=== PATIENT | male | born 1950 | race Caucasian/White ===

== ENCOUNTER 2017-12-08 10:07 | Inpatient (IN) | payer BC, OTHER ==
[2017-12-08 10:52] LABS: ADD MAN DIFF? NO
[2017-12-08 10:57] LABS: ABNORMAL IP MESSAGE 1; BASOPHIL # 0.2 10^3/ul (0.0-0.1); BASOPHILS % 1.1 % (0.0-2.0); EOSINOPHILS # 1.1 10^3/ul (0.0-0.5); EOSINOPHILS % 7.7 % (0.0-7.0); HEMATOCRIT 39.9 % (42.0-52.0); HEMOGLOBIN 13.7 g/dl (14.0-18.0); LYMPHOCYTES # 1.5 10^3/ul (0.8-2.9); LYMPHOCYTES % 11.2 % (15.0-51.0); MEAN CORPUSCULAR HEMOGLOBIN 30.4 pg (29.0-33.0); MEAN CORPUSCULAR HGB CONC 34.3 g/dl (32.0-37.0); MEAN CORPUSCULAR VOLUME 88.7 fl (82.0-101.0); MEAN PLATELET VOLUME 9.7 fl (7.4-10.4); MONOCYTE # 1.7 10^3/ul (0.3-0.9); MONOCYTES % 12.5 % (0.0-11.0); NEUTROPHIL # 9.1 10^3/ul (1.6-7.5); NEUTROPHILS % 66.3 % (39.0-77.0); PLATELET COUNT 377 10^3/UL (140-415); POSITIVE DIFF @See below; RED CELL DISTRIBUTION WIDTH 11.7 % (11.5-14.5)
[2017-12-08 10:57] LABS: WHITE BLOOD COUNT 13.7 10^3/ul (4.8-10.8)
[2017-12-08 11:00] LABS: ADD UMIC YES; UR ASCORBIC ACID NEGATIVE (NEGATIVE); UR BACTERIA FEW /HPF (NONE SEEN); UR BILIRUBIN (Dip) NEGATIVE (NEGATIVE); UR BLOOD (Dip) 1+ mg/dL (NEGATIVE); UR CLARITY SLIGHTLY CLOUDY (CLEAR); UR COLOR YELLOW (YELLOW); UR GLUCOSE (Dip) NEGATIVE (NEGATIVE); UR KETONES (Dip) NEGATIVE (NEGATIVE); UR LEUKOCYTE ESTERASE (Dip) NEGATIVE Leu/ul (NEGATIVE); UR MUCUS FEW /HPF (NONE SEEN); UR NITRITE (Dip) NEGATIVE (NEGATIVE); UR RBC 3 /HPF (0-5); UR SPECIFIC GRAVITY (Dip) 1.017 (1.003-1.030); UR TOTAL PROTEIN (Dip) 1+ mg/dl (NEGATIVE); UR UROBILINOGEN (Dip) 1+ mg/dL (NEGATIVE); UR WBC 5 /HPF (0-5)
[2017-12-08 11:34] LABS: ANION GAP 18 (8-16); BLOOD UREA NITROGEN 23 mg/dl (7-20); CALCIUM 9.3 mg/dl (8.4-10.2); CARBON DIOXIDE 31 mmol/L (21-31); CHLORIDE 98 mmol/L (97-110); CREATININE 1.28 mg/dl (0.61-1.24); GLUCOSE 122 mg/dl (70-220); POTASSIUM 3.6 mmol/L (3.5-5.1); SODIUM 143 mmol/L (135-144)
[2017-12-08 11:55] LABS: INR 1.04; PROTIME 13.7 Sec (11.9-14.9); PT RATIO 1.1
[2017-12-08 11:56] LABS: PARTIAL THROMBOPLASTIN TIME 32.3 Sec (25.0-35.0)
[2017-12-08 12:06] LABS: LIPASE 135 U/L (23-300)
[2017-12-08] MEDS: SOD CHLORIDE 0.9% 1,000 ML IV (12:06)
[2017-12-08] MEDS: SOD CHLORIDE 0.9% 100 ML (12:11)
[2017-12-08] MEDS: IOHEXOL 300MG/ML 150 ML BTL (12:11)
[2017-12-08 13:59] LABS: LACTIC ACID 1.6 mmol/L (0.5-2.0)
[2017-12-08] MEDS ORDERED: ACETAMINOPHEN 325 MG TAB PO (14:30)
[2017-12-08] MEDS ORDERED: ONDANSETRON 4 MG INJ IV (14:30)
[2017-12-08] MEDS ORDERED: HYDROCODONE/APAP (5/325) TAB PO (15:30)
[2017-12-08] MEDS ORDERED: NACL 0.9% 3 ML SYG IV (15:30)
[2017-12-08] MEDS ORDERED: ONDANSETRON 4 MG TAB PO (15:30)
[2017-12-08] MEDS: ACETAMINOPHEN 325 MG TAB PO (16:40)
[2017-12-09 05:05] LABS: ADD MAN DIFF? NO
[2017-12-09 05:06] LABS: WHITE BLOOD COUNT 12.1 10^3/ul (4.8-10.8)
[2017-12-09 05:06] LABS: ABNORMAL IP MESSAGE 1; BASOPHIL # 0.2 10^3/ul (0.0-0.1); BASOPHILS % 1.3 % (0.0-2.0); EOSINOPHILS # 1.2 10^3/ul (0.0-0.5); EOSINOPHILS % 10.1 % (0.0-7.0); HEMATOCRIT 34.6 % (42.0-52.0); HEMOGLOBIN 12.1 g/dl (14.0-18.0); LYMPHOCYTES # 1.6 10^3/ul (0.8-2.9); LYMPHOCYTES % 12.9 % (15.0-51.0); MEAN CORPUSCULAR HEMOGLOBIN 30.7 pg (29.0-33.0); MEAN CORPUSCULAR VOLUME 87.8 fl (82.0-101.0); MEAN PLATELET VOLUME 10.2 fl (7.4-10.4); MONOCYTE # 1.7 10^3/ul (0.3-0.9); MONOCYTES % 13.9 % (0.0-11.0); NEUTROPHIL # 7.3 10^3/ul (1.6-7.5); NEUTROPHILS % 60.5 % (39.0-77.0); PLATELET COUNT 350 10^3/UL (140-415); POSITIVE DIFF @See below; RED BLOOD COUNT 3.94 10^6/ul (4.70-6.10); RED CELL DISTRIBUTION WIDTH 12.1 % (11.5-14.5)
[2017-12-09 05:48] LABS: ANION GAP 18 (8-16); BLOOD UREA NITROGEN 23 mg/dl (7-20); CALCIUM 8.9 mg/dl (8.4-10.2); CARBON DIOXIDE 27 mmol/L (21-31); CHLORIDE 101 mmol/L (97-110); CREATININE 1.07 mg/dl (0.61-1.24); GLUCOSE 109 mg/dl (70-220); POTASSIUM 3.6 mmol/L (3.5-5.1); SODIUM 142 mmol/L (135-144)
[2017-12-09] MEDS: PANTOPRAZOLE (EC) 40 MG TAB PO (06:15)
[2017-12-09] MEDS: LEVOFLOXACIN 750 MG TABLET PO (09:20)
[2017-12-09] MEDS: ENOXAPARIN 40 MG/0.4 ML SYG SC (09:23)
[2017-12-09] MEDS: ACETAMINOPHEN 325 MG TAB PO (20:16)
[2017-12-10] MEDS: PANTOPRAZOLE (EC) 40 MG TAB PO (05:49)
[2017-12-10 06:08] LABS: ADD MAN DIFF? NO
[2017-12-10 06:12] LABS: ABNORMAL IP MESSAGE 1; BASOPHIL # 0.2 10^3/ul (0.0-0.1); BASOPHILS % 1.3 % (0.0-2.0); EOSINOPHILS # 1.3 10^3/ul (0.0-0.5); EOSINOPHILS % 9.4 % (0.0-7.0); HEMATOCRIT 34.7 % (42.0-52.0); HEMOGLOBIN 12.1 g/dl (14.0-18.0); LYMPHOCYTES # 1.5 10^3/ul (0.8-2.9); LYMPHOCYTES % 10.7 % (15.0-51.0); MEAN CORPUSCULAR HEMOGLOBIN 31.1 pg (29.0-33.0); MEAN CORPUSCULAR HGB CONC 34.9 g/dl (32.0-37.0); MEAN CORPUSCULAR VOLUME 89.2 fl (82.0-101.0); MEAN PLATELET VOLUME 10.3 fl (7.4-10.4); MONOCYTE # 1.5 10^3/ul (0.3-0.9); MONOCYTES % 10.8 % (0.0-11.0); NEUTROPHIL # 9.4 10^3/ul (1.6-7.5); PLATELET COUNT 384 10^3/UL (140-415); POSITIVE DIFF @See below; RED BLOOD COUNT 3.89 10^6/ul (4.70-6.10); RED CELL DISTRIBUTION WIDTH 11.9 % (11.5-14.5)
[2017-12-10 06:12] LABS: WHITE BLOOD COUNT 14.2 10^3/ul (4.8-10.8)
[2017-12-10 07:23] LABS: ANION GAP 16 (8-16); BLOOD UREA NITROGEN 22 mg/dl (7-20); CALCIUM 8.9 mg/dl (8.4-10.2); CARBON DIOXIDE 28 mmol/L (21-31); CHLORIDE 102 mmol/L (97-110); CREATININE 1.02 mg/dl (0.61-1.24); GLUCOSE 120 mg/dl (70-220); PHOSPHORUS 3.4 mg/dl (2.5-4.9); POTASSIUM 3.5 mmol/L (3.5-5.1); SODIUM 142 mmol/L (135-144)
[2017-12-10] MEDS: HYDROCHLOROTHIAZIDE 25 MG TAB PO ×2 (08:27→12:20)
[2017-12-10] MEDS: LEVOFLOXACIN 750 MG TABLET PO ×2 (08:27→12:20)
[2017-12-10] MEDS: LOSARTAN 50 MG TAB PO ×2 (08:27→12:20)
[2017-12-10] MEDS: ENOXAPARIN 40 MG/0.4 ML SYG SC (08:27)
[2017-12-10] MEDS: ACETAMINOPHEN 325 MG TAB PO ×2 (12:21→23:52)
[2017-12-10] MEDS: GUAIFENESIN/CODEINE 5ML CUP PO ×3 (15:50→23:51)
[2017-12-11] MEDS: PANTOPRAZOLE (EC) 40 MG TAB PO (05:14)
[2017-12-11 06:02] LABS: ADD MAN DIFF? NO
[2017-12-11 06:20] LABS: BASOPHIL # 0.2 10^3/ul (0.0-0.1); BASOPHILS % 1.6 % (0.0-2.0); EOSINOPHILS # 1.4 10^3/ul (0.0-0.5); HEMATOCRIT 35.7 % (42.0-52.0); HEMOGLOBIN 11.9 g/dl (14.0-18.0); LYMPHOCYTES # 1.6 10^3/ul (0.8-2.9); LYMPHOCYTES % 12.5 % (15.0-51.0); MEAN CORPUSCULAR HEMOGLOBIN 30.2 pg (29.0-33.0); MEAN CORPUSCULAR HGB CONC 33.3 g/dl (32.0-37.0); MEAN CORPUSCULAR VOLUME 90.6 fl (82.0-101.0); MEAN PLATELET VOLUME 10.3 fl (7.4-10.4); MONOCYTE # 1.4 10^3/ul (0.3-0.9); MONOCYTES % 10.7 % (0.0-11.0); NEUTROPHIL # 8.1 10^3/ul (1.6-7.5); NEUTROPHILS % 61.8 % (39.0-77.0); PLATELET COUNT 393 10^3/UL (140-415); RED BLOOD COUNT 3.94 10^6/ul (4.70-6.10); RED CELL DISTRIBUTION WIDTH 11.9 % (11.5-14.5)
[2017-12-11] MEDS: ENOXAPARIN 40 MG/0.4 ML SYG SC (09:00)
[2017-12-11] MEDS: SOD CHLORIDE 0.9% 250 ML (10:45)
[2017-12-11] MEDS: FENTAnyl 50 MCG/ML VIAL (10:55)
[2017-12-11] MEDS: MIDAZOLAM 1 MG/ML 2 ML INJ (11:00)
[2017-12-11] MEDS: LIDOCAINE 1% (MDV) 20 ML INJ (11:01)
[2017-12-11] MEDS: ACETAMINOPHEN 325 MG TAB PO ×2 (14:08→20:39)
[2017-12-11] MEDS: LEVOFLOXACIN 750 MG TABLET PO (14:08)
[2017-12-11] MEDS: HYDROCHLOROTHIAZIDE 25 MG TAB PO (14:09)
[2017-12-11] MEDS: LOSARTAN 50 MG TAB PO (14:10)
[2017-12-11] MEDS: GUAIFENESIN/CODEINE 5ML CUP PO ×2 (16:41→23:28)
[2017-12-12] MEDS: ACETAMINOPHEN 325 MG TAB PO ×2 (03:10→18:42)
[2017-12-12] MEDS: GUAIFENESIN/CODEINE 5ML CUP PO ×2 (04:32→18:42)
[2017-12-12] MEDS: PANTOPRAZOLE (EC) 40 MG TAB PO (06:06)
[2017-12-12] MEDS: LEVOFLOXACIN 750 MG TABLET PO (08:26)
[2017-12-12] MEDS: HYDROCHLOROTHIAZIDE 25 MG TAB PO (08:27)
[2017-12-12] MEDS: LOSARTAN 50 MG TAB PO (08:27)
[2017-12-12] MEDS: MAGNESIUM SULFATE 2 GM/50 ML 50 ML IVPB (14:36)
[2017-12-12] MEDS: METHYLPREDNISOLONE 40 MG INJ IV ×2 (17:40→23:33)
[2017-12-12] MEDS ORDERED: MAGNESIUM HYDROXIDE 30ML CUP PO (21:00)
[2017-12-12] MEDS: SENNA TAB PO (21:16)
[2017-12-13] MEDS: METHYLPREDNISOLONE 40 MG INJ IV ×2 (05:25→14:22)
[2017-12-13] MEDS: PANTOPRAZOLE (EC) 40 MG TAB PO (05:25)
[2017-12-13] MEDS: HYDROCHLOROTHIAZIDE 25 MG TAB PO (08:30)
[2017-12-13] MEDS: LOSARTAN 50 MG TAB PO (08:30)
[2017-12-13] MEDS: LEVOFLOXACIN 750 MG TABLET PO (08:30)
[2017-12-13] MEDS: SENNA TAB PO (08:30)
[2017-12-13] MEDS: ACETAMINOPHEN 325 MG TAB PO ×2 (08:30→18:03)
[2017-12-13] MEDS: ENOXAPARIN 40 MG/0.4 ML SYG SC (09:00)
[2017-12-13] MEDS: GUAIFENESIN/CODEINE 5ML CUP PO (18:03)
== END 2017-12-13 18:13 | disposition home or self-care (01) | DRG 197 ==
LOC: FTE 10:07 → PP2 14:15
PROC: 0BBJ3ZX Excision of Left Lower Lung Lobe, Percutaneous Approach, Diagnostic (ICD-10-PCS; principal; 2017-12-11)
DX: J84.89 Other specified interstitial pulmonary diseases (principal); N17.9 Acute kidney failure, unspecified; I12.9 Hypertensive chronic kidney disease with stage 1 through stage 4 chronic kidney disease, or unspecified chronic kidney disease; R51 Headache; D14.32 Benign neoplasm of left bronchus and lung
CPT/HCPCS: 36415; 70450; 71045; 71260; 77012; 80048; 81001; 83605; 83690; 83735; 84100; 85025; 85610; 85730; 87040; 88307; 88313; 96360; 96361; 99285-25

== ENCOUNTER 2018-05-09 09:37 | Day surgery (SDC) | payer BC ==
[2018-05-09] MEDS ORDERED: PROPOFOL 20 ML ×2 (11:39→12:08)
[2018-05-09] MEDS ORDERED: FENTAnyl 50 MCG/ML VIAL (11:40)
== END 2018-05-09 14:31 | disposition home or self-care (01) ==
LOC: GIL 09:37
DX: Z12.11 Encounter for screening for malignant neoplasm of colon (principal); K29.50 Unspecified chronic gastritis without bleeding; K57.90 Diverticulosis of intestine, part unspecified, without perforation or abscess without bleeding; K64.8 Other hemorrhoids; K21.9 Gastro-esophageal reflux disease without esophagitis; I10 Essential (primary) hypertension
CPT/HCPCS: 43239; 88305; 88312

== ENCOUNTER 2018-10-28 02:39 | Inpatient (IN) | payer BC ==
[2018-10-28 03:15] LABS: ADD MAN DIFF? NO
[2018-10-28 03:16] LABS: BASOPHIL # 0.1 10^3/ul (0.0-0.1); BASOPHILS % 0.4 % (0.0-2.0); EOSINOPHILS % 0.1 % (0.0-7.0); HEMATOCRIT 41.7 % (42.0-52.0); HEMOGLOBIN 14.6 g/dl (14.0-18.0); LYMPHOCYTES # 1.9 10^3/ul (0.8-2.9); LYMPHOCYTES % 11.7 % (15.0-51.0); MEAN CORPUSCULAR HEMOGLOBIN 30.6 pg (29.0-33.0); MEAN CORPUSCULAR VOLUME 87.4 fl (82.0-101.0); MEAN PLATELET VOLUME 10.6 fl (7.4-10.4); MONOCYTE # 0.8 10^3/ul (0.3-0.9); MONOCYTES % 4.7 % (0.0-11.0); NEUTROPHIL # 13.2 10^3/ul (1.6-7.5); NEUTROPHILS % 82.1 % (39.0-77.0); PLATELET COUNT 198 10^3/UL (140-415); RED BLOOD COUNT 4.77 10^6/ul (4.70-6.10); RED CELL DISTRIBUTION WIDTH 11.4 % (11.5-14.5)
[2018-10-28] MEDS: ACETAMINOPHEN 325 MG TAB PO ×3 (03:20→20:25)
[2018-10-28] MEDS: SODIUM CHLORIDE 0.9% 1L BAG IV* (03:20)
[2018-10-28 03:34] LABS: ALANINE AMINOTRANSFERASE 13 IU/L (13-69); ALBUMIN 4.5 g/dl (3.3-4.9); ALBUMIN/GLOBULIN RATIO 1.09; ALKALINE PHOSPHATASE 124 IU/L (42-121); ANION GAP 14 (5-13); ASPARTATE AMINO TRANSFERASE 30 IU/L (15-46); BLOOD UREA NITROGEN 15 mg/dl (7-20); CALCIUM 9.3 mg/dl (8.4-10.2); CARBON DIOXIDE 24 mmol/L (21-31); CHLORIDE 98 mmol/L (97-110); CREATININE 1.35 mg/dl (0.61-1.24); Estimated GFR 53 mL/min (>60); GLUCOSE 139 mg/dl (70-220); POTASSIUM 3.3 mmol/L (3.5-5.1); SODIUM 136 mmol/L (135-144); TOTAL PROTEIN 8.6 g/dl (6.1-8.1)
[2018-10-28 03:35] LABS: INR 1.11; PROTIME 14.4 Sec (11.9-14.9); PT RATIO 1.1
[2018-10-28 03:45] LABS: TROPONIN-I < 0.012 ng/ml (0.000-0.120)
[2018-10-28 04:58] LABS: ADD UMIC YES; UR ASCORBIC ACID NEGATIVE (NEGATIVE); UR BACTERIA MANY /HPF (NONE SEEN); UR BILIRUBIN (Dip) NEGATIVE (NEGATIVE); UR BLOOD (Dip) 2+ mg/dL (NEGATIVE); UR CLARITY CLOUDY (CLEAR); UR COLOR AMBER (YELLOW); UR GLUCOSE (Dip) NEGATIVE (NEGATIVE); UR KETONES (Dip) NEGATIVE (NEGATIVE); UR LEUKOCYTE ESTERASE (Dip) 2+ Leu/ul (NEGATIVE); UR MUCUS FEW /HPF (NONE SEEN); UR NITRITE (Dip) NEGATIVE (NEGATIVE); UR RBC 12 /HPF (0-5); UR SPECIFIC GRAVITY (Dip) 1.016 (1.003-1.030); UR TOTAL PROTEIN (Dip) 2+ mg/dl (NEGATIVE); UR UROBILINOGEN (Dip) 2+ mg/dL (NEGATIVE); UR WBC 143 /HPF (0-5)
[2018-10-28] MEDS ORDERED: BISACODYL (EC) 5 MG TAB PO (06:00)
[2018-10-28] MEDS ORDERED: DOCUSATE SODIUM 100 MG CAP PO (06:00)
[2018-10-28] MEDS ORDERED: NACL 0.9% 3 ML SYG IV (06:00)
[2018-10-28] MEDS: CEFTRIAXONE 1 GM/50 ML (PMX) 50 ML IVPB (06:02)
[2018-10-28 07:08] LABS: LACTIC ACID 1.3 mmol/L (0.5-2.0)
[2018-10-28] MEDS: ONDANSETRON 4 MG INJ IV (12:48)
[2018-10-28] MEDS: SUMATRIPTAN 6 MG/0.5 ML INJ SC (23:53)
[2018-10-29] MEDS: CEFTRIAXONE 2 GM/50 ML (PMX) 50 ML IVPB (04:29)
[2018-10-29 05:42] LABS: ADD MAN DIFF? NO
[2018-10-29 05:55] LABS: WHITE BLOOD COUNT 14.1 10^3/ul (4.8-10.8)
[2018-10-29 05:55] LABS: ABNORMAL IP MESSAGE 1; BASOPHIL # 0.1 10^3/ul (0.0-0.1); BASOPHILS % 0.4 % (0.0-2.0); EOSINOPHILS # 0.3 10^3/ul (0.0-0.5); EOSINOPHILS % 1.8 % (0.0-7.0); HEMATOCRIT 35.5 % (42.0-52.0); HEMOGLOBIN 12.3 g/dl (14.0-18.0); LYMPHOCYTES # 1.1 10^3/ul (0.8-2.9); MEAN CORPUSCULAR HEMOGLOBIN 30.9 pg (29.0-33.0); MEAN CORPUSCULAR HGB CONC 34.6 g/dl (32.0-37.0); MEAN CORPUSCULAR VOLUME 89.2 fl (82.0-101.0); MEAN PLATELET VOLUME 10.8 fl (7.4-10.4); MONOCYTE # 1.5 10^3/ul (0.3-0.9); MONOCYTES % 10.9 % (0.0-11.0); NEUTROPHIL # 10.9 10^3/ul (1.6-7.5); NEUTROPHILS % 77.8 % (39.0-77.0); PLATELET COUNT 158 10^3/UL (140-415); POSITIVE DIFF @See below; RED BLOOD COUNT 3.98 10^6/ul (4.70-6.10); RED CELL DISTRIBUTION WIDTH 11.7 % (11.5-14.5)
[2018-10-29] MEDS: DOCUSATE SODIUM 100 MG CAP PO ×2 (05:57→17:44)
[2018-10-29] MEDS: PANTOPRAZOLE (EC) 40 MG TAB PO (05:57)
[2018-10-29 06:00] LABS: HEMOGLOBIN A1C 5.5 % (0-5.9)
[2018-10-29 06:20] LABS: ALANINE AMINOTRANSFERASE 24 IU/L (13-69); ALBUMIN 3.2 g/dl (3.3-4.9); ALBUMIN/GLOBULIN RATIO 0.88; ALKALINE PHOSPHATASE 88 IU/L (42-121); ANION GAP 11 (5-13); ASPARTATE AMINO TRANSFERASE 24 IU/L (15-46); BILIRUBIN,INDIRECT 0.1 mg/dl (0-1.1); BILIRUBIN,TOTAL 0.1 mg/dl (0.2-1.3); BLOOD UREA NITROGEN 12 mg/dl (7-20); CALCIUM 8.4 mg/dl (8.4-10.2); CARBON DIOXIDE 26 mmol/L (21-31); CHLORIDE 103 mmol/L (97-110); CHOL/HDL RATIO 5.7 RATIO; CHOLESTEROL 110 mg/dl (100-200); CREATININE 0.73 mg/dl (0.61-1.24); Estimated GFR > 60 mL/min (>60); GLUCOSE 118 mg/dl (70-220); HDL CHOLESTEROL 19 mg/dl (30-78); LDL CHOLESTEROL,CALCULATED 61 mg/dl; MAGNESIUM 2.2 mg/dl (1.7-2.5); POTASSIUM 3.3 mmol/L (3.5-5.1); SODIUM 140 mmol/L (135-144); TOTAL PROTEIN 6.8 g/dl (6.1-8.1); TRIGLYCERIDES 152 mg/dl (0-149)
[2018-10-29] MEDS: ENOXAPARIN 40 MG/0.4 ML SYG SC (09:38)
[2018-10-29] MEDS: POTASSIUM CHLORIDE (SR) 20 MEQ TAB PO (13:29)
[2018-10-29] MEDS: FLUCONAZOLE 200 MG TAB PO ×2 (14:01→22:49)
[2018-10-29] MEDS: SOD CHLORIDE 0.9% 1,000 ML IV (16:00)
[2018-10-29 16:40] LABS: CREATINE KINASE 75 IU/L (23-200)
[2018-10-29 16:55] LABS: CK INDEX 0.5; CK-MB 0.41 ng/ml (0.0-2.4); TROPONIN-I < 0.012 ng/ml (0.000-0.120)
[2018-10-29] MEDS: ACETAMINOPHEN 325 MG TAB PO (19:39)
[2018-10-30 04:28] LABS: ADD MAN DIFF? NO
[2018-10-30 04:30] LABS: WHITE BLOOD COUNT 8.4 10^3/ul (4.8-10.8)
[2018-10-30 04:30] LABS: BASOPHILS % 0.5 % (0.0-2.0); EOSINOPHILS # 0.3 10^3/ul (0.0-0.5); EOSINOPHILS % 3.6 % (0.0-7.0); HEMATOCRIT 34.7 % (42.0-52.0); HEMOGLOBIN 12.1 g/dl (14.0-18.0); LYMPHOCYTES % 12.1 % (15.0-51.0); MEAN CORPUSCULAR HEMOGLOBIN 30.9 pg (29.0-33.0); MEAN CORPUSCULAR HGB CONC 34.9 g/dl (32.0-37.0); MEAN CORPUSCULAR VOLUME 88.5 fl (82.0-101.0); MEAN PLATELET VOLUME 10.4 fl (7.4-10.4); MONOCYTE # 1.1 10^3/ul (0.3-0.9); MONOCYTES % 13.5 % (0.0-11.0); NEUTROPHIL # 5.9 10^3/ul (1.6-7.5); NEUTROPHILS % 69.4 % (39.0-77.0); PLATELET COUNT 181 10^3/UL (140-415); RED BLOOD COUNT 3.92 10^6/ul (4.70-6.10); RED CELL DISTRIBUTION WIDTH 11.9 % (11.5-14.5)
[2018-10-30] MEDS: CEFTRIAXONE 2 GM/50 ML (PMX) 50 ML IVPB (04:40)
[2018-10-30 04:47] LABS: CREATINE KINASE 62 IU/L (23-200)
[2018-10-30 04:50] LABS: ANION GAP 12 (5-13); BLOOD UREA NITROGEN 13 mg/dl (7-20); CALCIUM 8.4 mg/dl (8.4-10.2); CARBON DIOXIDE 24 mmol/L (21-31); CHLORIDE 105 mmol/L (97-110); CREATININE 0.75 mg/dl (0.61-1.24); Estimated GFR > 60 mL/min (>60); GLUCOSE 104 mg/dl (70-220); MAGNESIUM 1.9 mg/dl (1.7-2.5); POTASSIUM 3.6 mmol/L (3.5-5.1); SODIUM 141 mmol/L (135-144)
[2018-10-30 05:00] LABS: CK INDEX 0.6; CK-MB 0.37 ng/ml (0.0-2.4); TROPONIN-I < 0.012 ng/ml (0.000-0.120)
[2018-10-30] MEDS: DOCUSATE SODIUM 100 MG CAP PO (06:09)
[2018-10-30] MEDS: PANTOPRAZOLE (EC) 40 MG TAB PO (06:09)
[2018-10-30] MEDS: GUAIFENESIN/DM 5ML CUP PO (06:11)
[2018-10-30] MEDS: IOHEXOL 300MG/ML 150 ML BTL (08:36)
[2018-10-30] MEDS: SOD CHLORIDE 0.9% 100 ML (08:37)
[2018-10-30] MEDS: FLUCONAZOLE 200 MG TAB PO (09:39)
[2018-10-30] MEDS: ENOXAPARIN 40 MG/0.4 ML SYG SC (09:47)
[2018-10-30] MEDS: hydrALAzine 20 MG INJ IV (16:23)
[2018-10-31] MEDS ORDERED: LEVOFLOXACIN 500 MG TAB PO (06:00)
[2018-10-31] MEDS ORDERED: HYDROCHLOROTHIAZIDE 25 MG TAB PO (09:00)
[2018-10-31] MEDS ORDERED: LOSARTAN 50 MG TAB PO (09:00)
== END 2018-10-30 17:45 | disposition home or self-care (01) | DRG 872 ==
LOC: E/R 02:39 → TEL 10-29 19:44
DX: A41.9 Sepsis, unspecified organism (principal); N39.0 Urinary tract infection, site not specified; B38.89 Other forms of coccidioidomycosis; J98.11 Atelectasis; N28.9 Disorder of kidney and ureter, unspecified; I10 Essential (primary) hypertension; K21.9 Gastro-esophageal reflux disease without esophagitis; G62.9 Polyneuropathy, unspecified; K59.00 Constipation, unspecified; N40.0 Benign prostatic hyperplasia without lower urinary tract symptoms; R91.8 Other nonspecific abnormal finding of lung field; E87.6 Hypokalemia; E78.5 Hyperlipidemia, unspecified; J40 Bronchitis, not specified as acute or chronic; B96.20 Unspecified Escherichia coli [E. coli] as the cause of diseases classified elsewhere
CPT/HCPCS: 36415; 71045; 71260; 74176; 80048; 80053; 80061; 81001; 82550; 82553; 83036; 83605; 83735; 84100; 84443; 84484; 85025; 85610; 85730; 86635; 87040; 87086; 93005; 93306; 99285-25; G0378